=== PATIENT | female | born 1965 | race Caucasian/White ===

== ENCOUNTER 2018-07-11 01:27 | Outpatient (CLI) | payer BC | END 2018-07-11 01:28 | disposition home or self-care (01) | LOC: LABBT 01:27 | PROVIDERS: ATTEND Orthopaedic Surgery | DX: Z01.818 Encounter for other preprocedural examination (principal); M79.89 Other specified soft tissue disorders | CPT/HCPCS: 93005; 93010 ==

== ENCOUNTER 2018-07-17 05:53 | Day surgery (SDC) | payer BC ==
[2018-07-11 14:14] VITALS: BMI 19.8
--- NOTE | 2018-07-16 08:37 | HP ---
HISTORY OF PRESENT ILLNESS: This patient is a 52-year-old female, who has a 1-year history of a mass in her right index finger, which has gradually increased in size and is painful. She does not remember any specific history of injury. The pain is interfering with day-to-day activities. PAST MEDICAL HISTORY: The patient is otherwise in good health. She had a melanoma excised 19 years ago without evidence of recurrence. She has had some nausea with previous anesthesia. She has one kidney. She has had a previous tubal ligation. She takes no routine medications, has no medical allergies. FAMILY HISTORY: Otherwise unremarkable. SOCIAL HISTORY: Otherwise unremarkable. REVIEW OF SYSTEMS: Otherwise unremarkable. PHYSICAL EXAMINATION: GENERAL: Reveals a healthy female. HEENT: Unremarkable. NECK: Supple. CHEST: Clear. HEART: Regular rate and rhythm. ABDOMEN: Soft, nontender. PELVIS: Deferred. RECTAL: Deferred. BREASTS: Deferred. EXTREMITIES: Pertinent findings of the right hand, there is a 1 x 1 cm nodule at the ulnar base of the proximal phalanx of the right index finger. It is firm, but not hard. It is slightly tender. Negative Tinel sign. There is full range of motion. Neurovascular exam is intact. DIAGNOSTIC STUDIES: X-rays of the finger reveal no bony abnormalities. IMPRESSIONS: Soft tissue mass, right index finger, possible ganglion versus giant cell tumor of tendon sheath. PLAN: Surgical excision. The nature of the surgery, length, recovery, and potential complications such as infection, loss of motion, incomplete relief, digital nerve injury, recurrence, need for additional treatment, and repeat surgery were discussed in detail. Job ID: [id number]
[2018-07-17] MEDS ORDERED: Midazolam HCl 2 mg/2 ml Vial ONE ×2 (06:41→07:13)
[2018-07-17] MEDS ORDERED: Fentanyl 100 MCG/2 ML VIAL ONE (06:41)
[2018-07-17] MEDS ORDERED: Bupivacaine PF 0.5% 30 ML VIAL ONE (06:46)
--- NOTE | 2018-07-17 13:33 | OP ---
DATE OF PROCEDURE: 07/17/2018 ANESTHESIA: Local plus TIVA. PREOPERATIVE DIAGNOSIS: Soft tissue mass, right index finger. POSTOPERATIVE DIAGNOSIS: Ganglion of tendon sheath, right index finger. OPERATIVE FINDINGS: There was relatively large typical ganglion cyst coming off the flexor tendon sheath, the base of proximal phalanx of the index finger. No definite neurovascular involvement. DESCRIPTION OF PROCEDURE: After satisfactory anesthesia was induced in supine position, the patient was prepped and draped in routine manner. Metacarpal block was accomplished with 10 mL of 0.5% plain Marcaine. The right arm was elevated, extended with an Esmarch bandage with the tourniquet inflated to 250 mmHg. An oblique incision was made from the ulnar base of the proximal phalanx directed radially across the volar base of the proximal phalanx, carried down to the subcutaneous tissues. Bleeding points controlled with Bovie cautery. The ulnar neurovascular bundle was protected throughout the procedure. Using sharp and blunt dissection, the mass was identified and excised in its entirety along with a window of the flexor tendon sheath. There appeared to be complete excision of the of the mass which was sent to Pathology. The wound was thoroughly irrigated and closed with interrupted 3-0 nylon. A sterile bulky compressive dressing was applied. The tourniquet deflated after 20 minutes. The hand promptly pinked up. The patient was awakened, taken to the operating room in stable condition. There were no apparent intraoperative complications. ESTIMATED BLOOD LOSS: Negligible. The patient will be discharged home in satisfactory condition, started on ice and elevation, given written wound care instructions. She was given a prescription for [place] 5 for pain, 20 tablets. She will be rechecked in my office in 10 to 14 days or sooner if there are any problems prior to that time. Job ID: [id number]
== END 2018-07-17 09:15 | disposition home or self-care (01) ==
LOC: SDC 05:53
PROVIDERS: ATTEND Orthopaedic Surgery
PROC: 0LB70ZZ Excision of Right Hand Tendon, Open Approach (ICD-10-PCS; principal; 2018-07-17)
DX: M67.441 Ganglion, right hand (principal); Z85.820 Personal history of malignant melanoma of skin
CPT/HCPCS: 88304; J0690; J2250; J3010; S0020